=== PATIENT | male | born 1975 | race Caucasian/White ===

== ENCOUNTER 2017-01-06 15:02 | Emergency (ER) | payer SELFPAY | END 2017-01-06 15:50 | disposition home or self-care (01) | LOC: MADERS 15:02 | DX: H60.91 Unspecified otitis externa, right ear (principal); I10 Essential (primary) hypertension; F17.210 Nicotine dependence, cigarettes, uncomplicated | CPT/HCPCS: 99282 ==

== ENCOUNTER 2017-01-07 22:27 | Emergency (ER) | payer SELFPAY ==
[2017-01-07] MEDS ORDERED: Sulfameth/Trimethoprim DS 800-160mg TAB ONE (22:58)
[2017-01-07] MEDS ORDERED: Ibuprofen 800 MG TAB ONE (22:58)
== END 2017-01-07 23:02 | disposition home or self-care (01) ==
LOC: MADERS 22:27
DX: L03.311 Cellulitis of abdominal wall (principal); I10 Essential (primary) hypertension; F17.210 Nicotine dependence, cigarettes, uncomplicated; F17.220 Nicotine dependence, chewing tobacco, uncomplicated; Z79.2 Long term (current) use of antibiotics; Z79.899 Other long term (current) drug therapy
CPT/HCPCS: 99282

== ENCOUNTER 2017-01-21 12:47 | Emergency (ER) | payer SELFPAY ==
[2017-01-21] MEDS ORDERED: Clindamycin 150 MG CAP ONE (13:35)
[2017-01-21] MEDS ORDERED: HYDROcodone/Acetaminophen 10/325 mg Tablet ONE (13:35)
== END 2017-01-21 13:55 | disposition home or self-care (01) ==
LOC: MADERS 12:47
DX: K04.7 Periapical abscess without sinus (principal); I10 Essential (primary) hypertension; F17.210 Nicotine dependence, cigarettes, uncomplicated; F17.220 Nicotine dependence, chewing tobacco, uncomplicated; Z79.891 Long term (current) use of opiate analgesic; Z79.2 Long term (current) use of antibiotics
CPT/HCPCS: 99282

== ENCOUNTER 2017-03-30 18:27 | Emergency (ER) | payer SELFPAY ==
[2017-03-30] MEDS ORDERED: AMOXicillin 250 MG CAP ONE (18:47)
[2017-03-30] MEDS ORDERED: Ondansetron ODT 4 MG TAB ONE (18:47)
== END 2017-03-30 19:18 | disposition home or self-care (01) ==
LOC: MADERS 18:27
DX: K08.89 Other specified disorders of teeth and supporting structures (principal); I10 Essential (primary) hypertension; F17.210 Nicotine dependence, cigarettes, uncomplicated; F17.220 Nicotine dependence, chewing tobacco, uncomplicated
CPT/HCPCS: 96372; J2270; Q0162

== ENCOUNTER 2017-08-13 15:05 | Emergency (ER) | payer SELFPAY ==
[2017-08-13] MEDS ORDERED: Gentamicin Ophth Ointment 0.3% 3.5 gm Tube ONE (15:37)
== END 2017-08-13 15:45 | disposition home or self-care (01) ==
LOC: MADERS 15:05
DX: H00.014 Hordeolum externum left upper eyelid (principal); H00.14 Chalazion left upper eyelid; I10 Essential (primary) hypertension; F17.210 Nicotine dependence, cigarettes, uncomplicated
CPT/HCPCS: 99283

== ENCOUNTER → 2018-03-19 | Emergency (ER) | payer SELFPAY | LOC: MADERS 22:53 | DX: Z53.21 Procedure and treatment not carried out due to patient leaving prior to being seen by health care provider (principal) ==

== ENCOUNTER 2018-07-30 13:38 | Emergency (ER) | payer SELFPAY ==
[2018-07-30] MEDS ORDERED: Ketorolac Tromethamine 30 MG/ML VIAL ONE (14:06)
[2018-07-30] MEDS ORDERED: Diazepam 5 MG TAB ONE (14:08)
--- NOTE | 2018-07-30 15:00 | CT ---
CT ABDOMEN AND PELVIS WITHOUT CONTRAST STONE PROTOCOL: Date: 07/30/18 HISTORY: Left-sided flank pain. COMPARISON: None. FINDINGS: Lung bases are clear. No pericardial effusion. Multiple calcified splenic granulomas. No nephroureterolithiasis or hydroureteronephrosis. No secondary evidence of a recently passed stone. Urinary bladder is without a calculus. The appendix is visualized and is normal. The aortic contour is nonaneurysmal. No retroperitoneal adenopathy, although there are a few small re troperitoneal periaortic lymph nodes. Noncontrast evaluation of the liver, pancreas, and gallbladder are unremarkable. IMPRESSION: 1. No nephroureterolithiasis or hydroureteronephrosis. No secondary evidence of recently passed ston e. 2. No acute inflammatory process in the abdomen or pelvis. 3. Normal appendix. POS: [facility]
== END 2018-07-30 14:27 | disposition left against medical advice (07) ==
LOC: MADERS 13:38
DX: M54.5 Low back pain (principal); M54.6 Pain in thoracic spine; R00.0 Tachycardia, unspecified; I10 Essential (primary) hypertension; F17.210 Nicotine dependence, cigarettes, uncomplicated
CPT/HCPCS: 74176; J1885

== ENCOUNTER 2019-04-28 11:42 | Emergency (ER) | payer SELFPAY ==
[2019-04-28] MEDS ORDERED: HYDROcodone/Acetaminophen 10/325 mg Tablet ONE (12:01)
== END 2019-04-28 12:11 | disposition home or self-care (01) ==
LOC: MADERS 11:42
DX: K04.7 Periapical abscess without sinus (principal); K02.9 Dental caries, unspecified; I10 Essential (primary) hypertension; F17.210 Nicotine dependence, cigarettes, uncomplicated
CPT/HCPCS: 99282

== ENCOUNTER 2019-05-13 21:02 | Emergency (ER) | payer SELFPAY ==
[2019-05-13] MEDS ORDERED: traMADol HCl 50 MG TAB ONE (21:35)
[2019-05-13] MEDS ORDERED: Ondansetron ODT 4 MG TAB ONE (21:35)
[2019-05-13] MEDS ORDERED: Ciprofloxacin 500 MG TAB ONE (21:35)
== END 2019-05-13 21:46 | disposition home or self-care (01) ==
LOC: MADERS 21:02
DX: H60.91 Unspecified otitis externa, right ear (principal); I10 Essential (primary) hypertension; F17.210 Nicotine dependence, cigarettes, uncomplicated; Z79.899 Other long term (current) drug therapy
CPT/HCPCS: 99282; Q0162

== ENCOUNTER 2019-06-01 19:52 | Emergency (ER) | payer SELFPAY ==
[2019-06-01] MEDS ORDERED: Bupivacaine PF 0.5% 30 ML VIAL ONE (20:29)
== END 2019-06-01 21:01 | disposition home or self-care (01) ==
LOC: MADERS 19:52
DX: K08.89 Other specified disorders of teeth and supporting structures (principal); I10 Essential (primary) hypertension; F17.220 Nicotine dependence, chewing tobacco, uncomplicated
CPT/HCPCS: 99283; S0020

== ENCOUNTER 2020-02-07 18:39 | Emergency (ER) | payer SELFPAY ==
--- NOTE | 2020-02-07 19:16 | RAD ---
Exam: Chest one view HISTORY:Chest pain. Comparison: 06/09/2003, 02/23/2006 FINDINGS: Cardiac silhouette: Normal Aorta: Unremarkable Pulmonary vessels: Normal Costophrenic angles: Clear LUNGS: Patchy interstitial opacities in the right lung base. Pneumothorax: None Osseous abnormalities: None IMPRESSION: Patchy interstitial opacities in the right lung base. Correlate for infiltrate.
[2020-02-07 19:28] LABS: #Basophils 0.1 thou/uL (0.0-0.2); #Eosinphils 0.1 thou/uL (0.0-0.7); #Lymphocytes 1.8 thou/uL (1.20-3.40); #Monocytes 0.6 thou/uL (0.11-0.59); #Neutrophils 6.4 thou/uL (1.40-6.50); %Basophils 1.2 % (0.0-1.0); %Monocytes 6.9 % (0.0-10.0); %Neutrophils 70.8 % (42.0-75.0); Hemoglobin 13.7 g/dL (14.0-18.0); Mean Corpuscular HGB CONC 31.5 g/dL (32.0-36.0); Mean Corpuscular Hemoglobin 30.1 pg (27.0-31.0); Mean Corpuscular Volume 95.6 fL (78.0-98.0); Mean Platelet Volume 6.4 fL (7.4-10.4); Platelet Count 321 thou/uL (130-400); RBC Distribution Width 12.6 % (11.5-14.5); Red Blood Cell (RBC) Count 4.54 mill/uL (4.70-6.10); White Blood Cell (WBC) Count 9.1 thou/uL (4.8-10.8)
[2020-02-07 19:47] LABS: ALT (SGPT) 23 U/L (8-55); AST (SGOT) 15 U/L (5-34); Acetaminophen Less than 6.0 mcg/mL (10.0-30.0); Alcohol Less than 10 mg/dL (Less than 10); Alkaline Phosphatase 82 U/L (40-110); Anion Gap 15 mmol/L (10-20); BUN (Urea Nitrogen) 18 mg/dL (8.9-20.6); Bilirubin, Total 0.4 mg/dL (0.2-1.2); Calc. Creatinine Clearance 0 mL/min (70-130); Calcium 8.4 mg/dL (7.8-10.44); Carbon Dioxide 19 mmol/L (22-29); Chloride 111 mmol/L (98-107); Estimated GFR-MDRD 87; Globulin 2.5 g/dL (2.4-3.5); Glucose 97 mg/dL (70-105); Potassium 3.9 mmol/L (3.5-5.1); Protein, Total 6.5 g/dL (6.0-8.3); Salicylate Less than 8.0 mg/dL (15.0-30.0); Sodium 141 mmol/L (136-145)
[2020-02-07 20:00] LABS: Amphetamine Detected (NotDetected); Barbiturates Screen Not Detected (NotDetected); Benzodiazepine Screen Not Detected (NotDetected); Cocaine Metabolite Screen Not Detected (NotDetected); Medtox Control Line Valid? VALID (VALID); Methadone Not Detected (NotDetected); Methamphetamine Detected (NotDetected); Opiate Screen Not Detected (NotDetected); Oxycodone Screen Not Detected (NotDetected); Phencyclidine (PCP) Not Detected (NotDetected); THC/Cannabinoid Screen Detected (NotDetected); Tricyclic Screen Not Detected (NotDetected)
== END 2020-02-07 22:35 | disposition home or self-care (01) ==
LOC: MADERS 18:39
DX: R07.89 Other chest pain (principal); F12.10 Cannabis abuse, uncomplicated; F15.20 Other stimulant dependence, uncomplicated; I10 Essential (primary) hypertension; F17.210 Nicotine dependence, cigarettes, uncomplicated
CPT/HCPCS: 36415; 71045; 80053; 80306; 80307; 84484; 85025; 93005

== ENCOUNTER 2020-02-11 19:27 | Emergency (ER) | payer OTHER, SELFPAY ==
[2020-02-11] MEDS ORDERED: Ibuprofen 800 MG TAB ONE (19:41)
[2020-02-11] MEDS ORDERED: Acetaminophen 500 MG TAB ONE (19:41)
--- NOTE | 2020-02-11 20:32 | RAD ---
EXAM: RIGHT WRIST THREE VIEWS: 02/11/20 HISTORY: Pain. FINDINGS: Mild degenerative changes involving the wrist. No acute fracture or dislocation. IMPRESSION: No acute fracture or dislocation. POS: [facility]
--- NOTE | 2020-02-11 20:56 | RAD ---
RIGHT HAND THREE VIEW: 02/11/20 HISTORY: Pain in the third metacarpophalangeal joint. COMPARISON: None. FINDINGS: There is moderate narrowing of the third metacarpophalangeal joint. No acute displaced fracture or ma lalignment. Soft tissues are unremarkable. 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 No acute osseous abnormality. POS: HOME
== END 2020-02-11 21:00 | disposition home or self-care (01) ==
LOC: MADERS 19:27
DX: S60.221A Contusion of right hand, initial encounter (principal); I10 Essential (primary) hypertension; F17.210 Nicotine dependence, cigarettes, uncomplicated; W18.30XA Fall on same level, unspecified, initial encounter

== ENCOUNTER 2020-06-10 17:54 | Emergency (ER) | payer OTHER, SELFPAY ==
--- NOTE | 2020-06-10 18:36 | RAD ---
XR Hand Rt 3 View STANDARD History: Injury Comparison: Radiograph February 11, 2020 Findings: Continue moderate degenerative disease of the no finger metacarpal phalangeal joint. Old fi fth metacarpal fracture. No new acute superimposed fracture or malalignment. Impression: No acute osseous abnormality.
== END 2020-06-10 19:15 ==
LOC: MADERS 17:54
DX: S60.221A Contusion of right hand, initial encounter (principal); I10 Essential (primary) hypertension; F32.9 Major depressive disorder, single episode, unspecified; F17.210 Nicotine dependence, cigarettes, uncomplicated; Y04.0XXA Assault by unarmed brawl or fight, initial encounter; Y92.149 Unspecified place in prison as the place of occurrence of the external cause
CPT/HCPCS: 29125

== ENCOUNTER 2022-06-12 11:58 | Emergency (ER) | payer SELFPAY ==
[2022-06-12] MEDS ORDERED: Cephalexin 500 MG CAP ONE (13:36)
[2022-06-12] MEDS ORDERED: Cyclobenzaprine 10 MG TAB ONE (13:36)
[2022-06-12] MEDS ORDERED: Ketorolac Tromethamine 60 MG/2 ML VIAL ONE (13:36)
== END 2022-06-12 14:00 | disposition home or self-care (01) ==
LOC: MADERS 11:58
DX: S33.5XXA Sprain of ligaments of lumbar spine, initial encounter (principal); S39.012A Strain of muscle, fascia and tendon of lower back, initial encounter; L03.311 Cellulitis of abdominal wall; I10 Essential (primary) hypertension; F17.220 Nicotine dependence, chewing tobacco, uncomplicated; X50.9XXA Other and unspecified overexertion or strenuous movements or postures, initial encounter
CPT/HCPCS: 96372; 99283; J1885

== ENCOUNTER 2023-02-10 10:21 | Emergency (ER) | payer SELFPAY ==
[2023-02-10 11:11] LABS: #Basophils 0.1 thou/uL (0.0-0.2); #Eosinphils 0.2 thou/uL (0.0-0.7); #Lymphocytes 3.6 thou/uL (1.20-3.40); #Monocytes 0.6 thou/uL (0.11-0.59); #Neutrophils 2.8 thou/uL (1.40-6.50); %Basophils 1.7 % (0.0-1.0); %Eosinophils 2.2 % (0.0-10.0); %Lymphocytes 49.5 % (21.0-51.0); %Neutrophils 38.6 % (42.0-75.0); Hemoglobin 16.3 g/dL (14.0-18.0); Mean Corpuscular HGB CONC 32.4 g/dL (32.0-36.0); Mean Corpuscular Volume 92.5 fl (78.0-98.0); Mean Platelet Volume 7.1 fL (7.4-10.4); Platelet Count 371 10x3/uL (130-400); RBC Distribution Width 13.2 % (11.5-14.5); Red Blood Cell (RBC) Count 5.43 mill/uL (4.70-6.10); White Blood Cell (WBC) Count 7.4 10x3/uL (4.8-10.8)
[2023-02-10 11:16] LABS: ALT (SGPT) 18 U/L (8-55); AST (SGOT) 19 U/L (5-34); Albumin 4.1 g/dL (3.5-5.0); Alkaline Phosphatase 114 U/L (40-110); Anion Gap 11 mmol/L (10-20); BUN (Urea Nitrogen) 15 mg/dL (8.9-20.6); Bilirubin, Total 0.5 mg/dL (0.2-1.2); Calc. Creatinine Clearance 0 mL/min (70-130); Calcium 9.1 mg/dL (7.8-10.44); Carbon Dioxide 27 mmol/L (22-29); Chloride 106 mmol/L (98-107); Estimated GFR 102; Globulin 3.9 g/dL (2.4-3.5); Glucose 96 mg/dL (70-105); Potassium 4.1 mmol/L (3.5-5.1); Sodium 140 mmol/L (136-145)
[2023-02-10] MEDS ORDERED: Ketorolac Tromethamine 30 MG/ML VIAL ONE (11:35)
[2023-02-10] MEDS ORDERED: Sodium Chloride 0.9% 1,000 ML ONE (11:35)
[2023-02-10 11:36] LABS: Mononucleosis NEGATIVE (NEGATIVE)
[2023-02-10 11:37] LABS: MONO NEGATIVE CONTROL ZONE White (Negative) (White); MONO POSITIVE CONTROL Pink Line (Positive) (PINK/RED)
[2023-02-10] MEDS ORDERED: Iopamidol 370 76% 100 ML VIAL ONE (11:50)
[2023-02-10] MEDS ORDERED: Ampicillin/Sulbactam 3 GM VIAL ONE (13:05)
[2023-02-10] MEDS ORDERED: Sodium Chloride 0.9% 100 ML ONE (13:05)
== END 2023-02-10 14:14 | disposition home or self-care (01) ==
LOC: MADERS 10:21
DX: K12.2 Cellulitis and abscess of mouth (principal); I10 Essential (primary) hypertension; F17.220 Nicotine dependence, chewing tobacco, uncomplicated
CPT/HCPCS: 70491; 71260; 80053; 85025; 86308; 96365; 96375; J0295; J1885; J3490; J7050; Q9967

== ENCOUNTER 2024-05-30 15:06 | Emergency (ER) | payer OTHER, SELFPAY ==
[2024-05-30] MEDS ORDERED: Tetracaine 0.5% PF 4 ML BOT ONE (16:05)
== END 2024-05-30 16:26 | disposition left against medical advice (07) ==
LOC: MADERS 15:06
DX: Z53.21 Procedure and treatment not carried out due to patient leaving prior to being seen by health care provider (principal)